=== PATIENT | female | born 1990 ===

== ENCOUNTER 2020-08-28 09:14 | Inpatient (IN) | payer OTHER ==
[~2020-08-28] VITALS: Ht 160 cm; Wt 86.2 kg
[2020-08-28] MEDS ORDERED: VALTREX1000 MG PO (10:22)
[2020-08-28] MEDS ORDERED: PRENATAL TABLE1 EAC3 PO (10:22)
== END 2020-08-30 12:37 | disposition home or self-care (01) | DRG 807 ==
LOC: OB/GYN 09:14 → LDR 09:14 → OB/GYN 08-29 00:09
PROVIDERS: ADMIT Obstetrics & Gynecology; ATTEND Obstetrics & Gynecology
PROC: 10E0XZZ Delivery of Products of Conception, External Approach (ICD-10-PCS; principal; 2020-08-28)
PROC: 4A1HXFZ Monitoring of Products of Conception, Cardiac Rhythm, External Approach (ICD-10-PCS; 2020-08-28)
DX: O80 Encounter for full-term uncomplicated delivery (principal); Z37.0 Single live birth; Z3A.39 39 weeks gestation of pregnancy

== ENCOUNTER 2022-04-23 10:21 | Day surgery (SDC) | payer OTHER ==
[~2022-04-23 10:21] MED LIST: PRENATAL TABLE1 EAC3 PO; VALTREX1000 MG PO
[2022-04-23] MEDS ORDERED: KETO10TA2 PO (13:49)
[2022-04-23] MEDS ORDERED: MIRALAX17 GM PO (13:49)
[2022-04-23] MEDS ORDERED: TYLENOL ARTHRI650 MG PO (13:49)
[2022-04-23] MEDS ORDERED: ULTRAM50 MG PO (13:49)
== END 2022-04-23 17:45 | disposition home or self-care (01) ==
LOC: CIR.AMB 10:21
PROVIDERS: ATTEND Surgery
DX: K43.6 Other and unspecified ventral hernia with obstruction, without gangrene (principal); K42.9 Umbilical hernia without obstruction or gangrene; Z20.822 Contact with and (suspected) exposure to COVID-19; F12.90 Cannabis use, unspecified, uncomplicated; E03.9 Hypothyroidism, unspecified
CPT/HCPCS: 49561; 49587; C1781